=== PATIENT | female | born 1955 | race Hispanic/Latino ===

== ENCOUNTER → 2025-02-02 | Outpatient (CLI) | payer OTHER ==
[2025-02-02 22:06] VITALS: PULSE 68; RESP 28
[2025-02-02 22:30] VITALS: PULSE 64; RESP 22
[2025-02-02 23:00] VITALS: PULSE 58; RESP 16
[2025-02-02 23:30] VITALS: PULSE 60; RESP 20
[2025-02-03] VITALS (10 sets, daily range): PULSE 58–66; RESP 8–20
== END | disposition home or self-care (01) ==
LOC: SLP 20:23
PROVIDERS: ATTEND Internal Medicine
DX: R06.83 Snoring (principal); Z68.39 Body mass index [BMI] 39.0-39.9, adult; R40.0 Somnolence; G47.33 Obstructive sleep apnea (adult) (pediatric)
CPT/HCPCS: 95810

== ENCOUNTER → 2025-02-11 | Outpatient (CLI) | payer OTHER ==
[2025-02-11 21:53] VITALS: PULSE 70; RESP 18
[2025-02-11 22:30] VITALS: PULSE 70; RESP 16
[2025-02-11 23:00] VITALS: PULSE 68; RESP 18
[2025-02-11 23:30] VITALS: PULSE 62; RESP 18
[2025-02-12] VITALS (9 sets, daily range): PULSE 54–72; RESP 14–18
== END | disposition home or self-care (01) ==
LOC: SLP 20:25
PROVIDERS: ATTEND Internal Medicine
DX: G47.33 Obstructive sleep apnea (adult) (pediatric) (principal); R06.83 Snoring; R40.0 Somnolence; G47.00 Insomnia, unspecified; Z68.39 Body mass index [BMI] 39.0-39.9, adult
CPT/HCPCS: 95811